=== PATIENT | female | born 1985 | race American Indian/Alaskan Native ===

== ENCOUNTER 2017-10-25 20:09 | Emergency (ER) | payer OTHER ==
[~2017-10-25] VITALS: Ht 157.5 cm; Wt 66.2 kg
[2017-10-25] MEDS ORDERED: CLARITIN-D 121 EACH PO (22:38)
[2017-10-25] MEDS ORDERED: FLONASE16 GM TOP (22:38)
[2017-10-25] MEDS ORDERED: SINGULAIR 10MG10 MG PO (22:38)
== END 2017-10-25 22:55 | disposition home or self-care (01) ==
LOC: ER 20:09
DX: R09.81 Nasal congestion (principal)

== ENCOUNTER 2018-04-26 10:26 | Outpatient (CLI) | payer OTHER ==
[~2018-04-26 10:26] MED LIST: CLARITIN-D 121 EACH PO; FLONASE16 GM TOP; SINGULAIR 10MG10 MG PO
== END 2018-04-26 12:49 | disposition home or self-care (01) ==
LOC: RX STUDY 10:26 → SONOGRAMA 10:26 → RX STUDY 12:49
DX: R10.2 Pelvic and perineal pain (principal)

== ENCOUNTER 2019-07-20 09:20 | Inpatient (IN) | payer OTHER ==
[~2019-07-20] VITALS: Ht 157.5 cm; Wt 81.6 kg
[2019-08-09] MEDS ORDERED: PRENATAL CAPLE1 EAC1 PO (12:15)
[2019-08-11] MEDS ORDERED: IBUPROFEN600 MG PO ×2 (07:58)
== END 2019-08-11 10:58 | disposition home or self-care (01) | DRG 807 ==
LOC: OB/GYN 08-09 06:27 → LDR 08-09 06:27 → OB/GYN 08-09 16:00
PROVIDERS: ADMIT Obstetrics & Gynecology
PROC: 10E0XZZ Delivery of Products of Conception, External Approach (ICD-10-PCS; principal; 2019-08-09)
PROC: 0HQ9XZZ Repair Perineum Skin, External Approach (ICD-10-PCS; 2019-08-09)
PROC: 10907ZC Drainage of Amniotic Fluid, Therapeutic from Products of Conception, Via Natural or Artificial Opening (ICD-10-PCS; 2019-08-09)
PROC: 3E033VJ Introduction of Other Hormone into Peripheral Vein, Percutaneous Approach (ICD-10-PCS; 2019-08-09)
PROC: 4A1HXCZ Monitoring of Products of Conception, Cardiac Rate, External Approach (ICD-10-PCS; 2019-08-09)
DX: O70.0 First degree perineal laceration during delivery (principal); Z37.0 Single live birth; Z3A.39 39 weeks gestation of pregnancy

== ENCOUNTER 2019-07-27 14:59 | Outpatient (CLI) | payer OTHER | END 2019-07-27 16:55 | disposition home or self-care (01) | LOC: NST 14:59 | DX: Z34.83 Encounter for supervision of other normal pregnancy, third trimester (principal) ==

== ENCOUNTER 2019-08-08 11:04 | Outpatient (CLI) | payer OTHER ==
[2019-08-09] MEDS ORDERED: PRENATAL CAPLE1 EAC1 PO (12:15)
== END 2019-08-08 11:57 | disposition home or self-care (01) ==
LOC: NST 11:04
DX: Z34.83 Encounter for supervision of other normal pregnancy, third trimester (principal)

== ENCOUNTER 2019-08-18 09:30 | Outpatient (CLI) | payer OTHER ==
[~2019-08-18 09:30] MED LIST changes: +IBUPROFEN600 MG PO; +PRENATAL CAPLE1 EAC1 PO
== END 2019-08-18 09:44 | disposition home or self-care (01) ==
LOC: SONOGRAMA 09:30
DX: N63.10 Unspecified lump in the right breast, unspecified quadrant (principal); N63.11 Unspecified lump in the right breast, upper outer quadrant

== ENCOUNTER 2020-08-15 08:31 | Outpatient (CLI) | payer OTHER | END 2020-08-15 09:05 | disposition home or self-care (01) | LOC: RAD 08:31 | PROVIDERS: ATTEND Physical Medicine & Rehabilitation Sports Medicine | DX: S76.112A Strain of left quadriceps muscle, fascia and tendon, initial encounter (principal); M25.552 Pain in left hip ==

== ENCOUNTER → 2021-04-22 | Outpatient (CLI) | payer OTHER | END | disposition home or self-care (01) | LOC: PPH VACUNA 08:00 | PROVIDERS: ATTEND Emergency Medicine Pediatric Emergency Medicine | DX: Z23 Encounter for immunization (principal) ==

== ENCOUNTER 2022-08-25 14:03 | Outpatient (CLI) | payer OTHER | END 2022-08-25 14:22 | disposition home or self-care (01) | LOC: MAMO-SONO 14:03 | PROVIDERS: ATTEND Obstetrics & Gynecology Maternal & Fetal Medicine | DX: Z12.31 Encounter for screening mammogram for malignant neoplasm of breast (principal); N63.0 Unspecified lump in unspecified breast; N64.4 Mastodynia; N60.11 Diffuse cystic mastopathy of right breast; R22.1 Localized swelling, mass and lump, neck ==